=== PATIENT | male | born 1945 | race Caucasian/White ===

== ENCOUNTER 2017-01-06 10:57 | Emergency (ER) | payer MEDICARE, BC ==
[~2017-01-06] VITALS: Ht 180.3 cm; Wt 90.7 kg
[2017-01-06] MEDS ORDERED: ROSU10TA PO (11:12)
[2017-01-06] MEDS ORDERED: AMLO10TA2 PO (11:12)
[2017-01-06] MEDS ORDERED: PRAS10TA5 PO (11:12)
[2017-01-06] MEDS ORDERED: NEBI5TAB8 PO (11:12)
[2017-01-06] MEDS ORDERED: ASPI-605 PO (11:12)
[2017-01-06] MEDS ORDERED: METF10002 PO (11:12)
[2017-01-06 11:17] LABS: BASOPHILS % (AUTO) 0.4 % (0.0-2.0); DIFF TOTAL % 100 %; EOSINOPHILS # (AUTO) 0.1 /CMM (0.0-0.7); EOSINOPHILS % (AUTO) 1.6 % (0.0-6.0); HEMATOCRIT 48 % (39-51); HEMOGLOBIN 15.9 g/dL (13.5-17.5); LYMPHOCYTES # (AUTO) 2.2 /CMM (0.8-4.8); LYMPHOCYTES % (AUTO) 29.6 % (20.0-44.0); MEAN CORPUSCULAR HEMOGLOBIN 32 PG (26.0-33.0); MEAN CORPUSCULAR HGB CONC 33 g/dl (31.0-36.0); MEAN CORPUSCULAR VOLUME 96 fL (80-96); MONOCYTES # (AUTO) 0.5 /CMM (0.1-1.30); MONOCYTES % (AUTO) 6.7 % (2.0-12.0); NEUTROPHILS # (AUTO) 4.6 /CMM (1.8-8.9); NEUTROPHILS % (AUTO) 61.7 % (43.0-81.0); PLATELET COUNT (AUTO) 236 /CMM (150-450); WHITE BLOOD COUNT (AUTO) 7.4 K/uL (4.3-11.0)
[2017-01-06 11:31] LABS: ANION GAP 14 (5-14); CALCIUM, SERUM 8.5 mg/dL (8.5-10.1); CARBON DIOXIDE 27 mmol/L (21-32); CHLORIDE 103 mmol/L (98-107); CREATININE 0.8 mg/dL (0.6-1.3); GFR 96 mL/min (>60); GLUCOSE 141 mg/dL (74-106); POTASSIUM 4.1 mmol/L (3.5-5.1); SODIUM SERUM 140 mmol/L (136-145); UREA NITROGEN, BLOOD 15 mg/dL (7-18)
[2017-01-06 11:35] LABS: INR 0.92 (0.87-1.13); PROTHROMBIN TIME 9.7 SECS (9.5-12.7)
[2017-01-06 11:37] LABS: ALANINE AMINOTRANSFERASE 45 U/L (12-78); ALBUMIN 3.9 g/dL (3.4-5.0); ASPARTATE AMINOTRANSFERASE 20 U/L (15-37); BILIRUBIN,DIRECT 0.2 mg/dL (0.0-0.2); INDIRECT BILIRUBIN 0.8 mg/dL (0.0-1.1); TOTAL PROTEIN, SERUM 7.3 g/dL (6.4-8.2)
[2017-01-06 11:39] LABS: TROPONIN I < 0.017 ng/mL (0.00-0.056)
[2017-01-06 12:26] VITALS: BP 141/78
== END 2017-01-06 12:38 | disposition left against medical advice (07) ==
LOC: ER 10:59
DX: R07.89 Other chest pain (principal); E11.9 Type 2 diabetes mellitus without complications; I10 Essential (primary) hypertension; Z79.82 Long term (current) use of aspirin; F17.210 Nicotine dependence, cigarettes, uncomplicated
CPT/HCPCS: 36415; 71010; 80048; 80076; 84484; 85025; 85730; 87081; 93005 ×2; 99285; A4606; Z7610

== ENCOUNTER 2017-05-20 05:41 | Emergency (ER) | payer MEDICARE, BC ==
[~2017-05-20] VITALS: Ht 182.9 cm; Wt 97.5 kg
[~2017-05-20 05:41] MED LIST: AMLO10TA2 PO; ASPI-605 PO; METF10002 PO; NEBI5TAB8 PO; PRAS10TA5 PO; ROSU10TA PO
--- NOTE | 2017-05-20 05:45 | NUR ---
PT PRESENTED TO THE ER WITH A C/O LT SIDED FLANK PAIN SINCE YESTERDAY. PT AMBULATED TO THE BATHROOM AND A URINE SAMPLE WAS OBTAINED. PT THEN AMBULATED TO BED #3. PT IS ON THE MONITOR AND CONTINUOUS PULSE OX.
[2017-05-20 06:32] LABS: BASOPHILS % (AUTO) 0.3 % (0.0-2.0); EOSINOPHILS # (AUTO) 0.1 /CMM (0.0-0.7); EOSINOPHILS % (AUTO) 1.3 % (0.0-6.0); HEMATOCRIT 44 % (39-51); LYMPHOCYTES # (AUTO) 2.1 /CMM (0.8-4.8); MEAN CORPUSCULAR HEMOGLOBIN 34 PG (26.0-33.0); MEAN CORPUSCULAR HGB CONC 34 g/dl (31.0-36.0); MEAN CORPUSCULAR VOLUME 99 fL (80-96); MONOCYTES # (AUTO) 0.8 /CMM (0.1-1.30); MONOCYTES % (AUTO) 7.3 % (2.0-12.0); NEUTROPHILS # (AUTO) 7.5 /CMM (1.8-8.9); NEUTROPHILS % (AUTO) 71.1 % (43.0-81.0); PLATELET COUNT (AUTO) 238 /CMM (150-450); RDW COEFFICIENT OF VARIATION 13.4 (11.5-15.0); RED BLOOD CELL COUNT(AUTO) 4.46 MIL/uL (4.5-6.0); WHITE BLOOD COUNT (AUTO) 10.6 K/uL (4.3-11.0)
[2017-05-20 06:32] LABS: APPEARANCE,URINE SL CLOUDY (CLEAR); BILIRUBIN,URINE 1+ (NEGATIVE); BLOOD, URINE 3+ Ery/uL (NEGATIVE); COLOR,URINE YELLOW (YELLOW); KETONES,URINE NEGATIVE (NEGATIVE); LEUKOCYTE ESTERASE ,URINE NEGATIVE (NEGATIVE); NITRITE, URINE NEGATIVE (NEGATIVE); PH,URINE 5.5 (5.0-8.0); PROTEIN,URINE NEGATIVE (NEGATIVE); UGLUCOSE NEGATIVE (NEGATIVE); UROBILINOGEN,URINE 0.2 EU/dL (0.2)
[2017-05-20] MEDS: IV NS 0.9% 1,000 ML BAG IV ONE (06:36)
[2017-05-20] MEDS: KETOROLAC TROMETHAMINE INJ 30 MG/ML VIAL IV ONE (06:37)
[2017-05-20] MEDS: KETOROLAC TROMETHAMINE 15 MG/ML VIAL ONE (06:38)
[2017-05-20] MEDS: IV NS 0.9% 1,000 ML ONE (06:38)
[2017-05-20 06:40] LABS: CALCIUM, SERUM 9.1 mg/dL (8.5-10.1); CARBON DIOXIDE 27 mmol/L (21-32); CHLORIDE 105 mmol/L (98-107); CREATININE 1.1 mg/dL (0.6-1.3); GLUCOSE 176 mg/dL (74-106); LIPASE 106 U/L (73-393); POTASSIUM 3.4 mmol/L (3.5-5.1); SODIUM SERUM 140 mmol/L (136-145); UREA NITROGEN, BLOOD 17 mg/dL (7-18)
[2017-05-20 06:44] LABS: BACTERIA,URINE Rare /HPF (None Seen); RBC,URINE 21-50 /HPF (0-2)
[2017-05-20 06:45] LABS: SQUAMOUS EPITHELIAL CELL,UR Rare /HPF (None Seen)
--- NOTE | 2017-05-20 06:54 | NUR ---
PT APPEARS TO BE RESTING COMFORTABLY. PT IS ON THE MONITOR AND CONTINUOUS PULSE OX. WILL CONTINUE TO MONITOR THE PT.
--- NOTE | 2017-05-20 06:55 | NUR ---
PT LEFT FOR CT.
--- NOTE | 2017-05-20 07:02 | NUR ---
PT RETURNED FROM CT.
--- NOTE | 2017-05-20 07:15 | NUR ---
REPORT GIVEN TO CAROLINA ALANIS FOR [facility].
--- NOTE | 2017-05-20 07:16 | NUR ---
RECEIVED PATIENT IN STABLE CONDITION. WILL CONTINUE TO MONITOR.
[2017-05-20 08:57] VITALS: BP 118/64
--- NOTE | 2017-05-20 08:58 | NUR ---
Patient discharged to home in stable condition. Written and verbal after care instructions given. Patient verbalizes understanding of instruction.
== END 2017-05-20 08:59 | disposition home or self-care (01) ==
LOC: ER 05:41
DX: R10.9 Unspecified abdominal pain (principal); E11.9 Type 2 diabetes mellitus without complications; I10 Essential (primary) hypertension; K57.30 Diverticulosis of large intestine without perforation or abscess without bleeding; K80.20 Calculus of gallbladder without cholecystitis without obstruction; F17.200 Nicotine dependence, unspecified, uncomplicated; N20.1 Calculus of ureter; Z79.82 Long term (current) use of aspirin; Z87.442 Personal history of urinary calculi
CPT/HCPCS: 36415; 72128-TC; 80048-TC; 81000-TC; 83690-TC; 85025-TC; 87086-TC; A4606; J1885; J7030; Z7610